=== PATIENT | female | born 1945 | race Caucasian/White ===

== ENCOUNTER 2016-12-11 11:46 | Day surgery (SDC) | payer MEDICARE ==
[2016-12-11] MEDS ORDERED: LACTATED RINGERS 1,000 ML IV ONE (13:16)
[2016-12-11] MEDS ORDERED: MIDAZOLAM 2 MG/2 ML VIAL IVP ONE (14:07)
[2016-12-11] MEDS ORDERED: fentaNYL 250 MCG/5 ML VIAL IVP ONE (14:07)
== END 2016-12-11 11:47 | disposition home or self-care (01) ==
PROC: 0DBN8ZX Excision of Sigmoid Colon, Via Natural or Artificial Opening Endoscopic, Diagnostic (ICD-10-PCS; principal; 2016-12-11 12:45)
DX: D12.5 Benign neoplasm of sigmoid colon (principal); K64.8 Other hemorrhoids; K57.30 Diverticulosis of large intestine without perforation or abscess without bleeding; Z86.010 Personal history of colon polyps; Z87.891 Personal history of nicotine dependence; I10 Essential (primary) hypertension
CPT/HCPCS: 45385; J3010; J7120

== ENCOUNTER 2017-12-04 12:34 | Outpatient (CLI) | payer MEDICARE ==
--- NOTE | 2017-12-04 17:50 | Ultrasound Report ---
BLADDER ULTRASOUND: 12/04/2017 CLINICAL INDICATION: Pain, umbilical discharge, question urachal remnant. TECHNIQUE: Real-time scanning was performed with petroleum products sales representative static images obtained. FINDINGS: Ultrasound of the bladder and midline structures was performed. The urinary bladder measures 10.2 x 8.7 x 8.3 cm. The bladder wall appears normal. Prevoid volume is 388 mL. No postvoid residual is seen. Bilateral ureteral jets are visualized. There is a 0.7 cm midline anterior abdominal wall hernia, approximately 8 cm inferior to the umbilicus, containing fat, without evidence of bowel herniation. No urachal remnant is identified. IMPRESSION: NORMAL URINARY BLADDER. NO EVIDENCE OF A URACHAL REMNANT. TINY MIDLINE HERNIA, CONTAINING FAT, WITHOUT EVIDENCE OF BOWEL HERNIATION. TD: 12/04/2017 17:48
--- NOTE | 2017-12-04 17:52 | Ultrasound Report ---
PELVIC ULTRASOUND: 12/04/2017 CLINICAL INDICATION: Pain, discharge from belly button. TECHNIQUE: Transabdominal pelvic ultrasound performed for global evaluation. Transvaginal pelvic ultrasound performed for detailed evaluation. Real-time scanning performed and static images obtained. FINDINGS: The patient is status post hysterectomy. Neither ovary was confidently identified on transabdominal or transvaginal imaging. No adnexal mass or free fluid is present. IMPRESSION: CHANGES OF HYSTERECTOMY. NO EVIDENCE OF ADNEXAL MASS. TD: 12/04/2017 17:51
== END 2017-12-04 12:35 | disposition home or self-care (01) ==
LOC: DI 12:34
PROVIDERS: ATTEND Internal Medicine
DX: R10.31 Right lower quadrant pain (principal); L08.82 Omphalitis not of newborn; R21 Rash and other nonspecific skin eruption; K43.9 Ventral hernia without obstruction or gangrene
CPT/HCPCS: 36415; 76830; 76856; 76857; 81599

== ENCOUNTER 2018-01-03 11:31 | Outpatient (CLI) | payer MEDICARE | END 2018-01-03 11:32 | disposition home or self-care (01) | LOC: DI 11:31 | PROVIDERS: ATTEND Physician Assistant | DX: R01.1 Cardiac murmur, unspecified (principal); I25.10 Atherosclerotic heart disease of native coronary artery without angina pectoris; I51.7 Cardiomegaly | CPT/HCPCS: 93306 ==

== ENCOUNTER 2018-02-14 10:02 | Outpatient (CLI) | payer MEDICARE | END 2018-02-14 10:03 | disposition home or self-care (01) | LOC: RT 10:02 | PROVIDERS: ATTEND Internal Medicine Cardiovascular Disease | DX: R01.1 Cardiac murmur, unspecified (principal) | CPT/HCPCS: 93005 ==

== ENCOUNTER 2018-06-26 06:53 | Outpatient (CLI) | payer MEDICARE ==
[2018-06-26 07:20] LABS: BASOPHILS # (AUTO) 0.1 10^3/uL (0.0-0.1); BASOPHILS % (AUTO) 0.8 %; EOSINOPHILS # (AUTO) 0.3 10^3/uL (0.0-0.7); EOSINOPHILS % (AUTO) 4.4 %; HGB - HEMOGLOBIN 12.9 g/dL (12.0-16.0); LYMPHOCYTES # (AUTO) 1.3 10^3/uL (1.5-3.5); LYMPHOCYTES % (AUTO) 18.5 %; MEAN CORPUSCULAR HEMOGLOBIN 33.8 pg (27.0-31.0); MEAN CORPUSCULAR HGB CONC 33.5 g/dL (32.0-36.0); MEAN CORPUSCULAR VOLUME 100.8 fL (81.0-99.0); MEAN PLATELET VOLUME 6.3 fL (7.9-10.8); MONOCYTES # (AUTO) 0.7 10^3/uL (0.0-1.0); NEUTROPHILS # (AUTO) 4.9 10^3/uL (1.5-6.6); NEUTROPHILS % (AUTO) 67.3 %; PLT - PLATELET COUNT 329 10^3/uL (130-450); RED BLOOD COUNT 3.83 10^6/uL (4.20-5.40); RED CELL DISTRIBUTION WIDTH 14.8 % (12.0-15.0); WHITE BLOOD COUNT 7.2 x10^3/uL (4.8-10.8)
[2018-06-26 07:34] LABS: ALBUMIN/GLOBULIN RATIO 1.6 (1.0-2.2); ALKALINE PHOSPHATASE 67 IU/L (42-121); ALT ALANINE AMINOTRANSFERASE 30 IU/L (10-60); AST ASPARTATE AMINOTRANSFERASE 31 IU/L (10-42); BILIRUBIN,TOTAL 0.6 mg/dL (0.2-1.0); BUN - BLOOD UREA NITROGEN 21 mg/dL (6-20); CALCIUM 9.3 mg/dL (8.5-10.3); CARBON DIOXIDE - CO2 28 mmol/L (21-32); CHLORIDE 101 mmol/L (101-111); GFR - MDRD 54 (>89); GLUCOSE 104 mg/dL (70-100); SODIUM 138 mmol/L (135-145); TOTAL PROTEIN 6.5 g/dL (6.7-8.2)
[2018-06-26 07:42] LABS: CRP - C-REACTIVE PROTEIN < 1.0 mg/dL (0-1.0)
[2018-06-26 07:46] LABS: THYROID STIMULATING HORMONE 1.09 uIU/mL (0.34-5.60)
[2018-06-26 07:48] LABS: FREE T4 (FREE THYROXINE) 0.64 ng/dL (0.58-1.64)
== END 2018-06-26 06:54 | disposition home or self-care (01) ==
LOC: LAB 06:53
PROVIDERS: ATTEND Physician Assistant
DX: R53.83 Other fatigue (principal); R60.0 Localized edema; R63.4 Abnormal weight loss
CPT/HCPCS: 36415; 80053; 82533; 84439; 84443; 85025; 85651; 86140

== ENCOUNTER 2018-07-02 10:03 | Day surgery (SDC) | payer MEDICARE ==
[~2018-07-02 10:03] MED LIST: ceFAZolin 2 GM/50 ML 2 GM/50 ML BAG IV ONE
[2018-07-02] MEDS ORDERED: ACETAMINOPHEN 1,000 MG/100 ML 100 ML IV ONE (10:39)
[2018-07-02] MEDS ORDERED: KETOROLAC 30 MG/ML VIAL IVP ONE (10:39)
[2018-07-02] MEDS ORDERED: PROPOFOL 200 MG/20 ML VIAL IVP ONE (10:39)
[2018-07-02] MEDS ORDERED: LIDOCAINE-MPF 2% 5 ML VIAL IM ONE (10:39)
[2018-07-02] MEDS ORDERED: fentaNYL 100 MCG/2 ML VIAL IVP ONE (10:39)
[2018-07-02] MEDS ORDERED: ONDANSETRON 4 MG/2 ML VIAL IVP ONE (10:39)
--- NOTE | 2018-07-02 10:39 | ANESTHESIA ---
Pre-Anesthesia VS, & Labs - Diagnosis right inguinal hernia, groin mass - Procedure right inguinal hernia repair Vital Signs: Temp Pulse Resp BP Pulse Ox 36.4 C L 78 16 144/87 H 98 07/02/18 10:19 07/02/18 10:19 07/02/18 10:19 07/02/18 10:19 07/02/18 10:19 Height 5 ft 1 in Weight (kg) 63 kg - NPO >8 hours - Is Patient ?: Not Applicable - Lab Results Lab results reviewed: Yes Home Medications and Allergies Home Medications: Ambulatory Orders Medication Instructions Recorded Confirmed Estradiol 1 mg PO DAILY 10/28/15 07/01/18 Lisinopril 10 mg PO DAILY 10/28/15 07/01/18 Cholecalciferol (Vitamin D3) 400 unit PO DAILY 12/08/16 07/01/18 [Vitamin D3] Doxycycline Hyclate 100 mg PO BID 07/01/18 07/01/18 Folic Acid 1.2 mg PO DAILY 07/01/18 07/01/18 Methotrexate Sodium [Trexall] 15 mg PO .QWEEK 07/01/18 07/01/18 Nad, Reduced, Disodium 0.5 gm PO TID 07/01/18 07/01/18 [Nicotinamide Adenine] Estradiol 1 mg PO DAILY 10/28/15 Lisinopril 10 mg PO DAILY 10/28/15 Cholecalciferol (Vitamin D3) [Vitamin D3] 400 unit PO DAILY 12/08/16 Doxycycline Hyclate 100 mg PO BID 07/01/18 Folic Acid 1.2 mg PO DAILY 07/01/18 Methotrexate Sodium [Trexall] 15 mg PO .QWEEK 07/01/18 Nad, Reduced, Disodium [Nicotinamide Adenine] 0.5 gm PO TID 07/01/18 Allergies/Adverse Reactions: Allergies Allergy/AdvReac Type Severity Reaction Status Date / Time alendronate sodium Allergy Severe Dizziness Verified 07/01/18 10:48 [From Fosamax] bacitracin Allergy Severe Edema Verified 07/01/18 10:48 [From Neosporin ([id number])] aloe Allergy Unknown Verified 07/01/18 10:48 bacitracin zinc * Allergy Edema Verified 07/01/18 10:48 [From Triple Antibiotic] neomycin Allergy Edema Verified 07/01/18 10:48 [From Neosporin ([id number]-dfo-[id number])] permethrin Allergy Unknown Verified 07/02/18 10:28 polymyxin B Allergy Edema Verified 07/01/18 10:48 [From Neosporin ([id number])] Anes History & Medical History - Anesthetic History Anesthesia Complications: reports: No previous complications Family history of Anesthesia Complications: Denies Family history of Malignant Hyperthermia: Denies - Medical History Cardiovascular: reports: Hypertension, High cholesterol, Coronary artery disease (patient denies cad) Pulmonary: reports: Emphysema, Shortness of breath Gastrointestinal: reports: Other Urinary: reports: None Musculoskeletal: reports: None Endocrine/Autoimmune: reports: Other Skin: reports: None - Surgical History General: Colonoscopy Eyes Ears Nose Throat (EENT): Tonsil/Adenoidectomy, Other Cardiothoracic: Lobectomy, AAA Gynecologic: Hysterectomy Exam General: Alert Dental: Dentures full Upper, Dentures full Lower Mouth Openin Fingerbreadth Neck Mobility: Reduced Mallampati classification: II Thyromental Distance: 4-6 cm Respiratory: Lungs clear, Normal breath sounds, No respiratory distress, No ac cessory muscle use Cardiovascular: Regular rate, Normal S1, Normal S2, No murmurs Mental/Cognitive Status: Alert/Oriented X3, Normal for patient Cognitive Status: Within normal limits Plan Anesthesia Type: General Consent for Procedure(s) Verified and Reviewed: Yes Code Status: Attempt Resuscitation ASA classification: 2-Mild systemic disease Is this case an emergency?: No
[2018-07-02] MEDS ORDERED: LACTATED RINGERS 1,000 ML IV ONE ×2 (10:53→14:30)
[2018-07-02] MEDS ORDERED: BUPIVACAINE 0.5% PF 30 ML VIAL INFIL ONE (12:18)
[2018-07-02] MEDS ORDERED: HYDROcod/ACETAM 5/325 MG TABLET PO PRN (13:11)
[2018-07-02] MEDS ORDERED: ONDANSETRON 4 MG/2 ML VIAL IVP PRN (13:11)
[2018-07-02] MEDS ORDERED: HYDROmorphone 0.5 MG/0.5 ML SYRINGE IVP PRN (13:11)
--- NOTE | 2018-07-02 13:11 | OPERATIVE REPORT ---
Operative Report - General Procedure Date: 07/02/18 Planned Procedure: Right inguinal herniorrhaphy Pre-Op Diagnosis: Right inguinal hernia Procedure Performed: Right inguinal herniorrhaphy with mesh Post Op Diagnosis: Right inguinal hernia - Procedure Note Primary Surgeon: Loyd Saab MD Anesthesia Provider: Loyd Gardner MD Anesthesia Technique: General LMA, Local (30 mL of half percent Marcaine) IV Fluids (mL): 700 Estimated Blood Loss (mL): 5 Complications: None. - Other Other Information/Narrative: OPERATIVE DESCRIPTION/REPORT: After verbal and written informed consent was obtained detailing the risks of infection, bleeding requiring transfusion with its risks, nerve injury, and , and after I met with the patient confirming the surgery and the site of the surgery and after initialing the site of the surgery with a surgical marker, the patient was brought to the operative suite and placed supine on the operating table. Great care was taken to avoid pressure points to prevent pressure necrosis or nerve injury. Monitoring devices were applied along with TEDs and pneumatic compressive stockings (to prevent DVT). The patient received preoperative antibiotics for surgical prophylaxis. Dr. Loyd Gardner sedated and anesthetized the patient for the entire procedure. The patient was prepped and draped in the usual sterile manner. With the patient draped my initials were clearly visible. A "time in" then confirmed that the patient was identified with 3 identifiers (name, date and medical record number), the history and physical was in the chart, the signed consent confirming the procedure was in the chart, the patient was in the correct position, the aforementioned prophylactic measures were in place or given, we had the correct personnel and equipment to complete the procedure and that anesthesia, surgery and nursing were given an opportunity to express any concerns. With the agreement of everyone in the room, we proceeded with the operation. A standard inguinal incision was made and dissection was carried down to the external oblique aponeurosis using a combination of Metzenbaum scissors and Bovie electrocautery. The external oblique aponeurosis was cleared of overlying adherent tissue, and the external ring was delineated. The external oblique was the incised with a scalpel and this incision was carried out towards the external ring using Metzenbaum scissors. The sac was immediately apparent coming up through the internal ring. Adhesions to the sac and to the canal were taken down using a combination of Metzenbaum scissors as well as Bovie electrocautery. Once the sac was completely freed it was an easy manner to invert the sac back into the abdomen. A large Bard Perfix plug (Ref# [id number], Lot#[id number], use date 2023-02-02) inserted into the internal ring. The plug was secured to the internal ring by a running 2-0 PDS suture. The Bard Perfix enlay patch was then placed on the floor of the inguinal canal and secured in place using interrupted 0 PDS sutures to the conjoined tendon superiorly, pubic tubercle medially, and shelving edge inferiorly. By reinforcing the floor with the enlay patch, the internal ring was covered. The wound was then irrigated using sterile saline, and hemostasis was obtained using Bovie electrocautery. The incision in the external oblique was approximated using a 3-0 Vicryl in a running fashion. The fascia and skin was then injected with the 1/2% marcaine for group home pain control. The skin incision was approximated with 4-0 Monocryl in a subcuticular fashion. The skin was prepped with benzoin and steristrips were applied. At this point a time out was performed that confirmed that all the counts were correct, the procedure that was performed, the blood loss, the IV fluids administered, and the patients condition. A dressing was then applied. Having tolerated the procedure well, the patient was taken to short stay in good and stable condition. Dragon disclaimer: This document was created in part using voice recognition technology. Because of the inherent limitations of the system ([employer]'s [employer] user manual states that the licensee understands that speech recognition is a statistical process and that recognition errors are inherent in the process), occasional same sounding word substitutions and grammatical errors do occur and persist despite proofreading. Please read this document for context.
[2018-07-02] MEDS: HYDROmorphone 1 MG/ML CARPUJECT ONE ×3 (13:14→13:30)
[2018-07-02] MEDS ORDERED: ONDANSETRON 4 MG/2 ML VIAL ONE (14:12)
[2018-07-02] MEDS ORDERED: DEXAMETHASONE 4 MG/ML VIAL ONE (15:30)
[2018-07-02] MEDS ORDERED: SCOPOLAMINE PATCH TOP ONE (15:31)
[2018-07-02 17:16] VITALS: BP 125/66
== END 2018-07-02 10:04 | disposition home or self-care (01) ==
LOC: SDS 10:03
PROVIDERS: ATTEND Surgery
PROC: 0YU50JZ Supplement Right Inguinal Region with Synthetic Substitute, Open Approach (ICD-10-PCS; principal; 2018-07-02 11:15)
DX: K40.90 Unilateral inguinal hernia, without obstruction or gangrene, not specified as recurrent (principal); I10 Essential (primary) hypertension; J43.9 Emphysema, unspecified; Z87.891 Personal history of nicotine dependence; I25.10 Atherosclerotic heart disease of native coronary artery without angina pectoris
CPT/HCPCS: 49505; C1781; J0131; J0690; J1170; J3490; J7120

== ENCOUNTER 2018-07-10 10:28 | Outpatient (CLI) | payer MEDICARE ==
--- NOTE | 2018-07-10 12:22 | XRAY Report ---
Reason: PAIN, DECREASE ROM Procedure Date: 07/10/2018 Accession Number: [id number] / [id number] Procedure: XRS - Hip w/Pelvis 2-3V RT CPT Code: FULL RESULT: EXAM: RIGHT/LEFT HIP AND PELVIS RADIOGRAPHY EXAM DATE: 07/10/2018 10:46 AM. HISTORY: Pain, decreased range of motion. COMPARISONS: XR PELVIS 1 OR 2 VIEWS 01/22/2008 12:40 PM. TECHNIQUE: 1 view of the pelvis and 1 view of the hip. FINDINGS: Bones: No fracture or bone lesion within the limitations of the suboptimal frog-leg view. Joints: Compared to 2007, there has been progressive joint space narrowing of the femoral acetabular joints, right greater than left. Soft Tissues: Normal. No soft tissue swelling. IMPRESSION: Progression of degenerative joint disease. RADIA
== END 2018-07-10 10:29 | disposition home or self-care (01) ==
LOC: DI.S 10:28
PROVIDERS: ATTEND Physician Assistant
DX: M16.0 Bilateral primary osteoarthritis of hip (principal); R29.898 Other symptoms and signs involving the musculoskeletal system

== ENCOUNTER 2019-07-03 10:43 | Outpatient (CLI) | payer MEDICARE ==
--- NOTE | 2019-07-04 16:33 | XRAY Report ---
Reason: PAIN LT SHOULDER JOINT M25.512 Procedure Date: 07/03/2019 Accession Number: [id number] / [id number] Procedure: XRS - Shoulder 3 View LT CPT Code: FULL RESULT: EXAM: LEFT SHOULDER RADIOGRAPHY, 3 VIEWS EXAM DATE: 07/03/2019 10:57 AM. CLINICAL HISTORY: 74-year-old female with left shoulder pain for 3 months. COMPARISON: CHEST W/ 05/05/2015 1:10 PM. TECHNIQUE: AP, lateral and Y views. FINDINGS: Bones: Minor hypertrophic change lateral aspect of the humeral head. No fracture or bone lesion. Joints: The glenohumeral and acromioclavicular joints are normal. Soft tissues: The visualized hemithorax is unremarkable. No soft tissue swelling. IMPRESSION: Minimal hypertrophic change lateral aspect left humeral head. Otherwise normal examination. No degenerative or inflammatory arthritis noted. RADIA
== END 2019-07-03 10:44 | disposition home or self-care (01) ==
LOC: DI.S 10:43
PROVIDERS: ATTEND Physician Assistant
DX: M25.512 Pain in left shoulder (principal)

== ENCOUNTER 2020-03-10 09:05 | Outpatient (CLI) | payer MEDICARE ==
--- NOTE | 2020-03-10 10:08 | XRAY Report ---
Reason: CERVICALGIA Procedure Date: 03/10/2020 Accession Number: [id number] / [id number] Procedure: XR - Cervical Spine 2 View CPT Code: Final Report FULL RESULT: PROCEDURE: Cervical Spine 2 View INDICATIONS: CERVICALGIA TECHNIQUE: 3 view(s) of the cervical spine were acquired. COMPARISON: None. FINDINGS: Bones: No fractures or dislocations to the T1 level. The lateral masses of C1 appear intact on the odontoid view. No suspicious bony lesions. Severe cervical spondylitic change. Trace degenerative anterolisthesis of C6 on C7 and of C5 on C6. Extensive multilevel right facet arthropathy, with lesser multilevel left facet arthropathy Soft tissues: No prevertebral soft tissue swelling. IMPRESSION: Severe cervical spondylitic change. Reviewed by: Pawan Renae MD on 03/10/2020 10:07 AM PDT Approved by: Pawan Renae MD on 03/10/2020 10:07 AM PDT Station ID: [id number]
== END 2020-03-10 09:06 | disposition home or self-care (01) ==
LOC: DI 09:05
PROVIDERS: ATTEND Nurse Practitioner Family
DX: M47.812 Spondylosis without myelopathy or radiculopathy, cervical region (principal)
CPT/HCPCS: 72040

== ENCOUNTER 2020-04-09 12:48 | Outpatient (CLI) | payer MEDICARE ==
--- NOTE | 2020-04-09 15:07 | XRAY Report ---
PROCEDURE: Chest 2 View X-Ray INDICATIONS: PRE OP TECHNIQUE: 2 view(s) of the chest. COMPARISON: None. FINDINGS: Surgical changes and devices: None. Lungs and pleura: No pleural effusions or pneumothorax. Lungs are clear. Mediastinum: Mediastinal contours are normal. Heart size is normal. Bones and chest wall: No suspicious bony abnormalities. Soft tissues appear unremarkable. IMPRESSION: No acute process. Reviewed by: Trini Grimes MD on 04/09/2020 3:06 PM PDT Approved by: Trini Grimes MD on 04/09/2020 3:06 PM PDT Station ID: [id number]
== END 2020-04-09 12:49 | disposition home or self-care (01) ==
LOC: LAB 12:48
PROVIDERS: ATTEND Surgery
DX: Z01.818 Encounter for other preprocedural examination (principal); K43.2 Incisional hernia without obstruction or gangrene; Z11.59 Encounter for screening for other viral diseases
CPT/HCPCS: 71046; 93005; U0004; 81599

== ENCOUNTER 2020-04-12 08:01 | Day surgery (SDC) | payer MEDICARE ==
[2020-04-12] MEDS ORDERED: PROPOFOL 200 MG/20 ML VIAL IVP ONE (08:02)
[2020-04-12] MEDS ORDERED: KETAMINE 500 MG/10 ML VIAL IVP ONE (08:02)
[2020-04-12] MEDS ORDERED: fentaNYL 100 MCG/2 ML VIAL IVP ONE (08:02)
[2020-04-12] MEDS ORDERED: ONDANSETRON 4 MG/2 ML VIAL IVP ONE (08:02)
[2020-04-12] MEDS ORDERED: MIDAZOLAM 2 MG/2 ML VIAL IVP ONE (08:02)
[2020-04-12] MEDS ORDERED: LACTATED RINGERS 1,000 ML IV ONE (08:26)
[2020-04-12] MEDS ORDERED: CEFAZOLIN SODIUM IN 0.9 % NACL 2 GM/100 ML BAG IV ONE (08:47)
--- NOTE | 2020-04-12 09:00 | ANESTHESIA ---
Pre-Anesthesia VS, & Labs - Diagnosis Incisional Hernia - Procedure Incisional Hernia repair Vital Signs: Temp Pulse Resp BP Pulse Ox 36.2 C L 86 16 188/91 H 94 04/12/20 08:08 04/12/20 08:08 04/12/20 08:08 04/12/20 08:08 04/12/20 08:08 Height 5 ft 1 in Weight (kg) 71.7 kg - NPO >8 hours - Is Patient ?: No - Lab Results Lab results reviewed: Yes Home Medications and Allergies Home Medications: Ambulatory Orders Calcium Carbonate 1,000 mg PO DAILY 03/31/20 Cholecalciferol (Vitamin D3) [Vitamin D3] 25 mcg PO DAILY 03/31/20 Ketorolac [Toradol] 10 mg PO DAILY PRN 03/31/20 estradioL [Estradiol] 1 mg PO DAILY 10/28/15 lisinopriL [Lisinopril] 10 mg PO DAILY 10/28/15 Calcium Carbonate 1,000 mg PO DAILY 03/31/20 Cholecalciferol (Vitamin D3) [Vitamin D3] 25 mcg PO DAILY 03/31/20 Ketorolac [Toradol] 10 mg PO DAILY PRN 03/31/20 Allergies/Adverse Reactions: Allergies Allergy/AdvReac Type Severity Reaction Status Date / Time alendronate sodium Allergy Severe Dizziness Verified 07/01/18 10:48 [From Fosamax] bacitracin Allergy Severe Edema Verified 07/01/18 10:48 [From Neosporin (siv-vja-wllwe)] aloe Allergy Rash Verified 03/31/20 12:41 bacitracin zinc * Allergy Edema Verified 07/01/18 10:48 [From Triple Antibiotic] neomycin Allergy Edema Verified 07/01/18 10:48 [From Neosporin ([id number]-afidm)] permethrin Allergy Unknown Verified 07/02/18 10:28 polymyxin B Allergy Edema Verified 07/01/18 10:48 [From Neosporin (gty-bvl-eltyz)] Anes History & Medical History - Anesthetic History Anesthesia Complications: reports: Difficult airway Family history of Anesthesia Complications: Denies Family history of Malignant Hyperthermia: Denies - Medical History Cardiovascular: reports: Hypertension, High cholesterol, Coronary artery disease, Other Pulmonary: reports: COPD, Emphysema, Shortness of breath Gastrointestinal: reports: None Urinary: reports: Incontinence Neuro: reports: None Musculoskeletal: reports: Osteoarthritis, Fatigue, Other Endocrine/Autoimmune: reports: None Blood Disorders: reports: None Skin: reports: None, Other Smoking Status: Former smoker Psychosocial: reports: Depression - Surgical History General: Colonoscopy Eyes Ears Nose Throat (EENT): Cataracts, Tonsil/Adenoidectomy, Other Cardiothoracic: Lobectomy, AAA Gynecologic: Hysterectomy Results - EKG Results EKG Comparison: Reviewed EKG Exam General: Alert, Oriented x3, Cooperative Dental: WNL Mouth Openin Fingerbreadth Neck Mobility: Limited Mallampati classification: II Thyromental Distance: less than 4 cm Respiratory: Lungs clear Cardiovascular: Regular rate Abdomen: Normal bowel sounds Mental/Cognitive Status: Alert/Oriented X3, Normal for patient Cognitive Status: Within normal limits Plan Anesthesia Type: General, Total IV Consent for Procedure(s) Verified and Reviewed: Yes Code Status: Attempt Resuscitation ASA classification: 3-Severe systemic disease Is this case an emergency?: No
[2020-04-12] MEDS ORDERED: LIDOCAINE 1%-EPI 1:100000 20 ML MDV ONE (10:24)
[2020-04-12] MEDS ORDERED: BUPIVACAINE 0.5% PF 30 ML VIAL ONE (10:24)
[2020-04-12] MEDS ORDERED: SODIUM CHLORIDE 0.9% 10 ML ONE (10:25)
[2020-04-12] MEDS ORDERED: BUPIVACAINE 0.5%-EPI 1:200000 PF 30 ML VIAL SUBQ ONE (10:25)
[2020-04-12] MEDS ORDERED: ceFAZolin 1 GM VIAL IR ONE (10:25)
[2020-04-12] MEDS ORDERED: ceFAZolin 1 GM VIAL ONE (10:25)
[2020-04-12] MEDS ORDERED: LIDOCAINE 1% 10 ML MDV SUBQ ONE (10:25)
--- NOTE | 2020-04-12 11:23 | OPERATIVE REPORT ---
Operative Report - General Procedure Date: 04/12/20 Planned Procedure: Incisional hernia repair Pre-Op Diagnosis: Suprapubic incisional hernia Procedure Performed: Incisional hernia repair with mesh Post Op Diagnosis: Suprapubic incisional hernia - Procedure Note Primary Surgeon: Cristina Anesthesia Provider: BART Tellez Anesthesia Technique: General LMA, Local Estimated Blood Loss (mL): 5 Indications: Painful, incarcerated, incisional hernia Findings: 3.5 cm defect with an incarcerated knuckle of omentum Complications: None apparent - Other Other Information/Narrative: After obtaining informed consent, the patient is brought to the operating room and placed in the supine position on the operating table. Following successful induction of general anesthesia, appropriate padding of all bony prominences, and placement of appropriate monitors, the abdomen was prepped and draped in the standard surgical fashion. A timeout was held per scope protocol. All elements of the surgical safety checklist were followed before, during, and after the procedure. We began the procedure by infiltrating a mixture of local anesthetics in the midline incision and over the region of the palpable hernia. An incision was created here and carried down through the skin and subcutaneous tissue to reveal the fascia below. The hernia sac was easily identified. The sac itself was approximately 6 to 7 cm in greatest diameter. It tapered down to a small opening approximately 3-1/2 cm in diameter. The sac contained what appeared to be viable but bruised omentum. The defect was enlarged approximately a half a centimeter so that the contents of the hernia sac could be returned to the abdominal cavity. Once this had been completed. I elected to repair the defect using permanent Prolene sutures and an onlay patch of Prolene mesh. The defect was then closed in a vertical fashion with interrupted #1 Prolene sutures. Mesh was soaked in Ancef solution and then placed on top of the closed defect and sewn both to the midline incision and the surrounding fascia again with #1 Prolene. The wound was checked for hemostasis and irrigated with warm water containing Ancef solution. It was then closed in 2 layers with Vicryl and Monocryl sutures and Dermabond was applied to the skin. All sponge, needle, and instrument counts were correct at the conclusion of the case. The patient was allowed awaken anesthesia without difficulty and taken to the postanesthesia care unit in good condition.
[2020-04-12] MEDS ORDERED: IBUPROFEN 600 MG TABLET PO PRN (11:26)
[2020-04-12] MEDS ORDERED: ACETAMINOPHEN 325 MG TABLET PO PRN (11:26)
[2020-04-12] MEDS ORDERED: oxyCODONE 5 MG TABLET PO PRN (11:26)
[2020-04-12] MEDS ORDERED: ONDANSETRON 4 MG/2 ML VIAL IVP PRN (11:26)
[2020-04-12] MEDS ORDERED: oxyCODONE 5 MG TABLET ONE (12:24)
[2020-04-12] MEDS ORDERED: KETOROLAC 15 MG/ML VIAL ONE (13:09)
[2020-04-12 13:19] VITALS: BP 136/70
[2020-04-12] MEDS ORDERED: KETOROLAC 15 MG/ML VIAL IVP SCH (14:00)
== END 2020-04-12 08:02 | disposition home or self-care (01) ==
LOC: SDS 08:01
PROVIDERS: ATTEND Surgery
PROC: 0WUF0JZ Supplement Abdominal Wall with Synthetic Substitute, Open Approach (ICD-10-PCS; principal; 2020-04-12 09:00)
DX: K43.0 Incisional hernia with obstruction, without gangrene (principal); I10 Essential (primary) hypertension; J43.9 Emphysema, unspecified; Z87.891 Personal history of nicotine dependence
CPT/HCPCS: 49561; 49568; A9270; C1781; J0690; J7120

== ENCOUNTER 2021-08-19 10:40 | Outpatient (CLI) | payer MEDICARE ==
--- NOTE | 2021-08-19 13:49 | XRAY Report ---
PROCEDURE: Chest 2 View X-Ray INDICATIONS: R06.09 DYSPNEA TECHNIQUE: 2 view(s) of the chest. COMPARISON: Plain films dated 04/09/2020 FINDINGS: Surgical changes and devices: None. Lungs and pleura: No pleural effusions or pneumothorax. Lungs are clear. Mediastinum: Mediastinal contours are normal. Heart size is normal. Bones and chest wall: No suspicious bony abnormalities. Soft tissues appear unremarkable. IMPRESSION: No acute process. Reviewed by: Trini Grimes MD on 08/19/2021 1:48 PM PST Approved by: Trini Grimes MD on 08/19/2021 1:48 PM PST Station ID: [id number]
[2021-08-19 15:23] LABS: BASOPHILS # (AUTO) 0.1 10^3/uL (0.0-0.1); BASOPHILS % (AUTO) 0.9 %; EOSINOPHILS # (AUTO) 0.2 10^3/uL (0.0-0.7); EOSINOPHILS % (AUTO) 2.7 %; HCT - HEMATOCRIT 48.7 % (37.0-47.0); HGB - HEMOGLOBIN 14.8 g/dL (12.0-16.0); LYMPHOCYTES # (AUTO) 1.4 10^3/uL (1.5-3.5); LYMPHOCYTES % (AUTO) 17.5 %; MEAN CORPUSCULAR HEMOGLOBIN 29.8 pg (27.0-31.0); MEAN CORPUSCULAR HGB CONC 30.4 g/dL (32.0-36.0); MEAN CORPUSCULAR VOLUME 98.2 fL (81.0-99.0); MEAN PLATELET VOLUME 9.9 fL (7.9-10.8); MONOCYTES # (AUTO) 0.9 10^3/uL (0.0-1.0); MONOCYTES % (AUTO) 11.5 %; NEUTROPHILS # (AUTO) 5.5 10^3/uL (1.5-6.6); NEUTROPHILS % (AUTO) 67.2 %; PLT - PLATELET COUNT 325 10^3/uL (130-450); RED BLOOD COUNT 4.96 10^6/uL (4.20-5.40); RED CELL DISTRIBUTION WIDTH 14.6 % (12.0-15.0); WHITE BLOOD COUNT 8.2 x10^3/uL (4.8-10.8)
[2021-08-19 15:49] LABS: ALBUMIN 4.1 g/dL (3.2-5.5); ALBUMIN/GLOBULIN RATIO 1.5 (1.0-2.2); BILIRUBIN,TOTAL 0.7 mg/dL (0.2-1.0); CALCIUM 9.6 mg/dL (8.5-10.3); CREATININE 0.7 mg/dL (0.4-1.0); POTASSIUM 4.1 mmol/L (3.5-5.0); TOTAL PROTEIN 6.9 g/dL (6.7-8.2)
[2021-08-19 15:57] LABS: THYROID STIMULATING HORMONE 0.58 uIU/mL (0.34-5.60)
== END 2021-08-19 10:41 | disposition home or self-care (01) ==
LOC: DI.S 10:40
PROVIDERS: ATTEND Nurse Practitioner Family
DX: R06.09 Other forms of dyspnea (principal)
CPT/HCPCS: 36415; 80053; 84443; 85025

== ENCOUNTER 2021-09-11 09:27 | Outpatient (CLI) | payer MEDICARE ==
[2021-09-11] MEDS ORDERED: ALBUTEROL 1 PUFF INH STA (11:39)
== END 2021-09-11 09:28 | disposition home or self-care (01) ==
LOC: RT 09:27
PROVIDERS: ATTEND Nurse Practitioner Family
DX: R06.09 Other forms of dyspnea (principal)
CPT/HCPCS: 94060

== ENCOUNTER 2022-01-27 10:35 | Outpatient (CLI) | payer MEDICARE ==
[2022-01-27] MEDS ORDERED: IOVERSOL 320 50 ML VIAL ONE (11:02)
--- NOTE | 2022-01-27 14:11 | CT Report ---
PROCEDURE: SOFT TISSUE NECK W INDICATIONS: BENIGN NEOPLASM OF BASE OF TONGUE CONTRAST: IV CONTRAST: Optiray 320 ml: 100 PO CONTRAST: *NO PO CONTRAST TECHNIQUE: After the administration of intravenous contrast, 3.0 mm axial sections acquired from the sella to th e aortic arch. Additional oblique axial 3.0 mm sections acquired through the pharynx. 3 mm thick co iker reformats were generated. For radiation dose reduction, the following was used: automated exp osure control, adjustment of mA and/or kV according to patient size. COMPARISON: None. FINDINGS: Image quality: Excellent. Lymph nodes: No enlarged lymph nodes seen throughout the neck. Vessels: Visualized vasculature appears patent. Right common carotid artery follows a medial course. Neck spaces: Slight prominence of the left tongue base mucosa without abnormal postcontrast enhancem ent. The nasopharynx, and pharynx demonstrate no mucosal lesions. The vocal cords, false vocal cords , pyriform sinuses, epiglottis, vallecula, and tongue base all appear normal. Moderate-sized, simple right internal laryngocele that measures up to 1.7 cm. Small, simple left internal laryngocele that m easures up to 5 mm. Extramucosal spaces appear unremarkable. Glands: The parotid and submandibular glands appear normal. The thyroid is normal in size and there are no incidental findings. Miscellaneous: Visualized brain and orbits appear normal. Lung apices appear clear. Bilateral lung centrilobular emphysematous changes. Superficial soft tissues appear normal. Bones: Patient is edentulous. No suspicious bony lesions. Spine degenerative disc disease and facet arthropathy are noted. Visualized sinuses and mastoids appear unremarkable. IMPRESSION: 1. Bilateral simple, internal laryngoceles. 2. Slight prominence of the left tongue base which also without abnormal postcontrast enhancement. 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 Recommend correlation with direct visualizatio n. 3. No lymphadenopathy based on size criteria. Reviewed by: Vanessa Penaloza MD, PhD on 01/27/2022 2:10 PM PDT Approved by: Vanessa Penaloza MD, PhD on 01/27/2022 2:10 PM PDT Station ID: [id number]
[2022-01-27] MEDS ORDERED: IOVERSOL 320 50 ML VIAL IVP ONE (14:55)
== END 2022-01-27 10:36 | disposition home or self-care (01) ==
LOC: DI 10:35
DX: D10.1 Benign neoplasm of tongue (principal); Q31.3 Laryngocele

== ENCOUNTER 2022-03-27 15:06 | Outpatient (CLI) | payer MEDICARE ==
--- NOTE | 2022-03-28 13:44 | Mammography Report ---
BILATERAL DIGITAL SCREENING MAMMOGRAM 3D/2D WITH EXAGGERATED CC: 03/27/2022 CLINICAL: Routine screening. Baseline exam. No prior exams were available for comparison. There are scattered fibroglandular elements in both br easts. There is a 0.8 cm oval equal density mass with a microlobulated margin in the left breast at 1 o'cloc k middle depth. Vascular calcification in the right breast. Benign calcifications in the left breast. No other significant masses, calcifications, or other findings are seen in either breast. IMPRESSION: INCOMPLETE: NEEDS ADDITIONAL IMAGING EVALUATION The 0.8 cm oval equal density mass in the left breast resembles a cyst and is indeterminate. Additional views with possible ultrasound are recommended. This exam was interpreted at Station ID: [id number]. NOTE: For mammograms, a report in lay terms will be sent to the patient. Approximately 15% of breast malignancies will not be visualized mammographically. In the management of a palpable breast mass, a negative mammogram must not discourage biopsy of a clinically suspicious lesion. Electronically Signed By: Harvey Barboza M.D. slc/:03/27/2022 16:49:45 ACR BI-RADS Category 0: Incomplete 3340F PARENCHYMAL PATTERN: (A) - The breast(s) demonstrate(s) scattered fibroglandular densities. BI-RADS CATEGORY: (0) - 0 Mammo and [place] [id number] Immediate follow-up LATERALITY: (B)
== END 2022-03-27 15:07 | disposition home or self-care (01) ==
LOC: DI.S 15:06
PROVIDERS: ATTEND Nurse Practitioner Family
DX: Z12.31 Encounter for screening mammogram for malignant neoplasm of breast (principal); R92.8 Other abnormal and inconclusive findings on diagnostic imaging of breast

== ENCOUNTER 2022-04-28 10:34 | Outpatient (CLI) | payer MEDICARE ==
--- NOTE | 2022-05-01 09:04 | Mammography Report ---
UNILATERAL LEFT DIGITAL DIAGNOSTIC MAMMOGRAM 3D/2D: 04/28/2022 CLINICAL: Patient returns today to evaluate a focal asymmetry in the left breast. Comparison is made to exam dated: 03/27/2022 mammogram - [facility]. There are sca ttered fibroglandular elements in left breast. The 0.8 cm oval equal density mass with a microlobulated margin in the left breast at 3 o'clock middl e depth is seen in additional views. No other significant masses or calcifications are seen in the breast. IMPRESSION: INCOMPLETE: NEEDS ADDITIONAL IMAGING EVALUATION The 0.8 cm oval equal density mass in the left breast resembles a cyst and is indeterminate. A target ed ultrasound of the left breast is recommended and will be performed immediately following this exam . Based on the Tyrer Cuzick model (a risk assessment model) the patients lifetime risk is 1.9% and her 10 year risk is 0.0%. According to the ACR, ACS, and NCCN guidelines, an annual breast MRI exam humza g with mammogram is recommended if the patients lifetime risk is 20% or greater. This exam was interpreted at Station ID: [id number]. NOTE: For mammograms, a report in lay terms will be sent to the patient. Approximately 15% of breast malignancies will not be visualized mammographically. In the management of a palpable breast mass, a negative mammogram must not discourage biopsy of a clinically suspicious lesion. Electronically Signed By: Elissa Allan M.D. lk/:04/28/2022 11:39:56 ACR BI-RADS Category 0: Incomplete 3340F PARENCHYMAL PATTERN: (A) - The breast(s) demonstrate(s) scattered fibroglandular densities. BI-RADS CATEGORY: (0) - 0 Ultrasound [id number] Immediate follow-up LATERALITY: (B)
--- NOTE | 2022-05-01 09:04 | Ultrasound Report ---
LIMITED ULTRASOUND OF LEFT BREAST AND AXILLA: 04/28/2022 CLINICAL: Patient returns for additional imaging over a suspected mass in the left breast. Comparison is made to exams dated: 04/28/2022 mammogram and 03/27/2022 mammogram - [facility]. Color flow and real-time ultrasound of the left breast 3 o'clock, and axilla regions were performed on the areas of interest. Bryant scale images of the real-time examination were reviewed. There is a 0.6 cm irregular mass in the left breast at 3 o'clock middle depth. This irregular mass i s hypoechoic. This correlates as an incidental finding. There also is a 0.7 cm x 0.8 cm x 0.4 cm oval mass in the left breast at 3 o'clock middle depth. Thi s oval mass is hypoechoic. This likely correlates with mammography findings. IMPRESSION: SUSPICIOUS OF MALIGNANCY The 0.6 cm irregular mass in the left breast at 3 o'clock middle depth is at a low suspicion for luis gnancy. An ultrasound guided biopsy is recommended. The 0.7 cm x 0.8 cm x 0.4 cm oval mass in the left breast at 3 o'clock middle depth likely represents a fibroadenoma and is probably benign. Follow-up mammogram and ultrasound in 6 months is recommende d. This exam was interpreted at Station ID: [id number]. SUMMARY: This was discussed with the patient by the radiologist Dr. Yoo at the time of the exam. Electronically Signed By: Elissa Allan M.D. lk/:04/28/2022 12:23:07 Ultrasound BI-RADS: 4a Low suspicion for malignancy BI-RADS CATEGORY: (4a) - Low Susp Biopsy follow-up [id number] Immediate follow-up LATERALITY: (B)
== END 2022-04-28 10:35 | disposition home or self-care (01) ==
LOC: DI 10:34
PROVIDERS: ATTEND Nurse Practitioner Family
DX: R92.8 Other abnormal and inconclusive findings on diagnostic imaging of breast (principal)

== ENCOUNTER 2022-05-05 14:22 | Outpatient (CLI) | payer MEDICARE ==
--- NOTE | 2022-05-05 17:21 | Ultrasound Report ---
PROCEDURE: Retroperitoneal Limited INDICATIONS: AAA TECHNIQUE: Real-time scanning was performed of the retroperitoneal organs, with image documentation. COMPARISON: CT abdomen 08/22/2012 FINDINGS: Endovascular aortic repair is present within the midportion. Proximal aorta measures 2.5 x 2.6 cm the proximal, mid and distal measurements of the endovascular repair measured 2.9 x 3.0 cm, 2.3 x 2.4 cm and 2.1 x 1.9 cm respectively. Proximal peak systolic velocity measures 57.7 cm/s with mid proximal systolic velocity of 63.9 cm/s. Biphasic flow is identified. Inflow stenosis measures 6.5 cm/s with p roximal, mid and distal flow measuring 41.1 cm/s, 50 cm/s and 78 cm/s. The right and left limbs in th e common iliac artery demonstrate triphasic flow and are widely patent. IMPRESSION: Endovascular repair without leak. Questionable kinking within the midportion of the graft secondary t o mild measure narrowing. Reviewed by: Jennifer Glass MD on 05/05/2022 5:19 PM PDT Approved by: Jennifer Glass MD on 05/05/2022 5:19 PM PDT Station ID: [id number]
== END 2022-05-05 14:23 | disposition home or self-care (01) ==
LOC: DI 14:22
PROVIDERS: ATTEND Nurse Practitioner Family
DX: I71.4 Abdominal aortic aneurysm, without rupture (principal)

== ENCOUNTER 2022-05-17 10:13 | Outpatient (CLI) | payer MEDICARE ==
[~2022-05-17 10:13] MED LIST changes: +LIDOCAINE 1%-EPI 1:100000 20 ML MDV ONE; -ceFAZolin 2 GM/50 ML 2 GM/50 ML BAG IV ONE; +lidocaine 1% 20 ML MDV ONE
[2022-05-17] MEDS ORDERED: LIDOCAINE 1%-EPI 1:100000 20 ML MDV SUBQ ONE (14:59)
[2022-05-17] MEDS ORDERED: lidocaine 1% 20 ML MDV SUBQ ONE (15:00)
--- NOTE | 2022-05-22 11:26 | Ultrasound Report ---
ULTRASOUND GUIDED BIOPSY LEFT BREAST WITH MARKING DEVICE INSERTED: 05/17/2022 CLINICAL: Left breast mass. PATIENT CONSENT: Risks (minor bleeding, infection, vasovagal reaction and repeat procedure), benefits and alternatives were explained to the patient and written informed consent was obtained. Correlation is made to exams dated: 04/28/2022 ultrasound, 04/28/2022 mammogram, and 03/27/2022 mammogr [facility]. An ultrasound guided biopsy using real-time ultrasound was performed for the 0.6 cm x 0.3 cm x 0.6 cm microlobulated irregular shaped mass located in the left breast at 3 o'clock middle depth 2 cm from the nipple. The skin was prepped in the usual manner. An 18 gauge biopsy needle was placed adjacent to the abnormality under ultrasound guidance. Once the needle was documented to be in the correct l ocation, five specimens were obtained using a BARD biopsy device. A clip was inserted into the biops y cavity. The specimens were sent to the laboratory for pathological analysis. After marker was placed, the patient declined post-procedure mammogram IMPRESSION: ULTRASOUND GUIDED BIOPSY BENIGN Ultrasound guided biopsy of the 0.6 cm x 0.3 cm x 0.6 cm mass in the left breast at 3 o'clock middle depth 2 cm from the nipple demonstrates benign breast tissue. These results are discordant with the imaging. Repeat biopsy with a vacuum assisted device is recommended. This exam was interpreted at Station ID: [id number]. Rui blevins,lk/:05/19/2022 17:34:09 BI-RADS CATEGORY: () - Biopsy follow-up [id number] Immediate follow-up LATERALITY: (B)
== END 2022-05-17 10:14 | disposition home or self-care (01) ==
LOC: DI 10:13
PROVIDERS: ATTEND Nurse Practitioner Family
DX: R92.8 Other abnormal and inconclusive findings on diagnostic imaging of breast (principal)
CPT/HCPCS: 19083

== ENCOUNTER 2022-07-05 11:54 | Day surgery (SDC) | payer MEDICARE ==
[2022-07-05] MEDS ORDERED: LACTATED RINGERS 1,000 ML IV ONE ×2 (12:29→14:40)
[2022-07-05] MEDS ORDERED: PROPOFOL 200 MG/20 ML VIAL IVP ONE (13:07)
[2022-07-05] MEDS ORDERED: PROPOFOL 500 MG/50 ML 500 MG/50 ML VIAL ONE (13:07)
--- NOTE | 2022-07-05 13:57 | ANESTHESIA ---
Pre-Anesthesia VS, & Labs - Diagnosis screening - Procedure colonoscopy Vital Signs: Temp Pulse Resp BP Pulse Ox O2 Flow Rate 36.6 C 95 22 150/84 H 94 07/05/22 12:15 07/05/22 12:15 07/05/22 12:15 07/05/22 12:15 07/05/22 12:15 Height: 5 ft Weight (kg): 69 kg Body Mass Index: 29.7 BMI Classification: Overweight - NPO >8 hours Last Fluid Intake: am prep - Is Patient ?: No - Lab Results Lab results reviewed: Yes Home Medications and Allergies Home Medications: Ambulatory Orders Albuterol Sulf [Ventolin Hfa Inhaler] 1 each INH Q4HR 07/04/22 Areds 2 1 each PO DAILY 07/04/22 Tiotropium [place] [Spiriva Respimat] 4 gm IH DAILY 07/04/22 estradioL [Estradiol] 1 mg PO DAILY 10/28/15 lisinopriL [Lisinopril] 10 mg PO DAILY 10/28/15 Calcium Carbonate 1,000 mg PO DAILY 03/31/20 Cholecalciferol (Vitamin D3) [Vitamin D3] 25 mcg PO DAILY 03/31/20 Albuterol Sulf [Ventolin Hfa Inhaler] 1 each INH Q4HR 07/04/22 Areds 2 1 each PO DAILY 07/04/22 Tiotropium [place] [Spiriva Respimat] 4 gm IH DAILY 07/04/22 Allergies/Adverse Reactions: Allergies Allergy/AdvReac Type Severity Reaction Status Date / Time alendronate sodium Allergy Severe Dizziness Verified 07/01/18 10:48 [From Fosamax] bacitracin Allergy Severe Edema Verified 07/01/18 10:48 [From Neosporin ([id number])] aloe Allergy Rash Verified 03/31/20 12:41 bacitracin zinc * Allergy Edema Verified 07/01/18 10:48 [From Triple Antibiotic] neomycin Allergy Edema Verified 07/01/18 10:48 [From Neosporin ([id number])] permethrin Allergy Unknown Verified 07/02/18 10:28 polymyxin B Allergy Edema Verified 07/01/18 10:48 [From Neosporin ([id number])] Anes History & Medical History - Anesthetic History Anesthesia Complications: reports: No previous complications Family history of Anesthesia Complications: Denies Family history of Malignant Hyperthermia: Denies - Medical History Cardiovascular: reports: Hypertension, High cholesterol, Coronary artery disease, Other Pulmonary: reports: COPD, Emphysema, Shortness of breath Gastrointestinal: reports: None Urinary: reports: Incontinence Neuro: reports: None Musculoskeletal: reports: Osteoarthritis, Fatigue, Other Endocrine/Autoimmune: reports: None Blood Disorders: reports: None Skin: reports: None, Other Smoking Status: Former smoker History of Cancer?: Yes (lung, resected) - Surgical History General: reports: Colonoscopy Eyes Ears Nose Throat (EENT): reports: Cataracts, Tonsil/Adenoidectomy, Other Cardiothoracic: reports: Lobectomy, AAA Gynecologic: reports: Hysterectomy, Other Exam General: Alert, Oriented x3, Cooperative Dental: Dentures full Upper, Dentures full Lower Mouth Openin Fingerbreadth Neck Mobility: Normal Mallampati classification: II Thyromental Distance: 4-6 cm Respiratory: Lungs clear, Normal breath sounds, No respiratory distress Cardiovascular: Regular rate Mental/Cognitive Status: Alert/Oriented X3, Normal for patient Cognitive Status: Within normal limits Plan Anesthesia Type: Total IV Consent for Procedure(s) Verified and Reviewed: Yes Code Status: Attempt Resuscitation ASA classification: 3-Severe systemic disease Is this case an emergency?: No
[2022-07-05] MEDS ORDERED: LIDOCAINE-MPF 2% 5 ML VIAL ONE (14:19)
[2022-07-05 15:24] VITALS: BP 144/88
--- NOTE | 2022-07-05 15:42 | ANESTHESIA POST OP EVALUATION ---
Anesthesia Post Eval - Post Anesthesia Eval Vitals: Last Vital Signs Temp 36.9 C 07/05/22 14:40 Pulse 66 07/05/22 15:23 Resp 21 07/05/22 15:23 BP 144/88 H 07/05/22 15:23 Pulse Ox 94 07/05/22 15:23 O2 Flow Rate CV Function Including HR & BP: Stable Pain Control: Satisfactory Nausea & Vomiting: Negative Mental Status: Baseline Respiratory Status: Airway Patent Hydration Status: Satisfactory Anesthesia Complications: None
== END 2022-07-05 11:55 | disposition home or self-care (01) ==
LOC: SDS 11:54
PROVIDERS: ATTEND Surgery
DX: Z12.11 Encounter for screening for malignant neoplasm of colon (principal); Z86.010 Personal history of colon polyps; K57.30 Diverticulosis of large intestine without perforation or abscess without bleeding; J44.9 Chronic obstructive pulmonary disease, unspecified; I10 Essential (primary) hypertension
CPT/HCPCS: G0105; J7120

== ENCOUNTER 2022-07-08 08:41 | Outpatient (CLI) | payer MEDICARE ==
--- NOTE | 2022-07-08 16:43 | CT Report ---
PROCEDURE: CT angiogram abdomen and pelvis with contrast INDICATIONS: Abdominal aortic aneurysm, stent 2012 CONTRAST: IV CONTRAST: Optiray 320 ml: 100 PO CONTRAST: *NO PO CONTRAST TECHNIQUE: After the administration of intravenous contrast, 2.5 mm thick sections acquired from the diaphragm t o the symphysis. 10 mm maximum-intensity projection (MIP) reformats were then acquired. For radiati on dose reduction, the following was used: automated exposure control, adjustment of mA and/or kV ac cording to patient size. COMPARISON: FINDINGS: Lower thorax: The lung bases are clear. Heart size normal. No hiatal hernia. Liver: Normal in size and attenuation. No contour deformity present. 3 cm right hepatic cyst. Smalle r additional cysts noted. Biliary system: No calcified cholelithiasis or pericholecystic inflammation. No evidence of bile du ct dilatation. Pancreas: Unremarkable without mass or inflammation evident. Spleen: Normal in size and density. 1.7 cm low-density lesion in the inferior pole the spleen Adrenals: Low-density 1.7 cm left adrenal nodule Reproductive system: Unremarkable as visualized. Urinary system: Normal renal size and attenuation. No renal calculi, hydronephrosis, or solid mass p resent. Urinary bladder unremarkable. Gastrointestinal system: The bowel appears unremarkable with no evidence of bowel obstruction or inf lammation. The stomach appears unremarkable. Left colon and sigmoid diverticulosis without evidence o f diverticulitis Appendix: No findings to suggest acute appendicitis. Peritoneal spaces: No mesenteric or retroperitoneal adenopathy. No free air. No free fluid. Vasculature: Infrarenal abdominal aortic aneurysm measures 3 cm. Abdominal aorta is tortuous and ecta tic, and shows mural fatty scarring vascular calcification. No aortic dissection Musculoskeletal: Normal bone mineralization. No acute fractures. Abdominal wall intact without pooja dence of ventral or inguinal hernias. Degenerative disc disease and arthropathy noted in the lower wiley mbar spine IMPRESSION: Small infrarenal abdominal aortic aneurysm measures 3 cm in diameter, and may reflect surgical graft. No dissection. Low-density 1.7 cm left adrenal nodule, probable adenoma. Right hepatic and splenic probable cysts Reviewed by: Yung Merida MD on 07/08/2022 3:42 PM AKGARTH Approved by: Yung Merida MD on 07/08/2022 3:42 PM AKDT Station ID: [id number]
== END 2022-07-08 08:42 | disposition home or self-care (01) ==
LOC: DI 08:41
PROVIDERS: ATTEND Nurse Practitioner Family
DX: I71.40 Abdominal aortic aneurysm, without rupture, unspecified (principal); E27.9 Disorder of adrenal gland, unspecified
CPT/HCPCS: 36415; 74174; 80048; Q9967

== ENCOUNTER 2022-07-08 08:42 | Outpatient (CLI) | payer MEDICARE ==
[2022-07-08 09:22] LABS: CALCIUM 9.1 mg/dL (8.5-10.3); CREATININE 0.8 mg/dL (0.4-1.0); POTASSIUM 4.1 mmol/L (3.5-5.0)
== END 2022-07-08 08:43 | disposition home or self-care (01) ==
LOC: LAB 08:42
PROVIDERS: ATTEND Nurse Practitioner Family
DX: I71.40 Abdominal aortic aneurysm, without rupture, unspecified (principal)
CPT/HCPCS: 36415; 80048

== ENCOUNTER 2022-09-07 12:05 | Day surgery (SDC) | payer MEDICARE ==
[2022-09-07] MEDS ORDERED: LACTATED RINGERS 1,000 ML IV ONE ×2 (12:45→15:46)
[2022-09-07] MEDS ORDERED: LIDOCAINE JELLY 2% 6 ML JEL.PF.APP ONE (13:46)
[2022-09-07] MEDS ORDERED: BUPIVACAINE 0.5% PF 30 ML VIAL ONE (13:46)
[2022-09-07] MEDS ORDERED: LIDOCAINE MPF 2%-EPI 1:200000 20 ML VIAL ONE (13:46)
[2022-09-07] MEDS ORDERED: MIDAZOLAM 2 MG/2 ML VIAL ONE (14:09)
[2022-09-07] MEDS ORDERED: fentaNYL 100 MCG/2 ML VIAL ONE (14:09)
[2022-09-07] MEDS ORDERED: ROCURONIUM 50 MG/5 ML VIAL ONE (14:09)
[2022-09-07] MEDS ORDERED: PROPOFOL 200 MG/20 ML VIAL IVP ONE (14:10)
--- NOTE | 2022-09-07 14:49 | ANESTHESIA ---
Pre-Anesthesia VS, & Labs - Diagnosis symptomatic large internal hemorrhoids - Procedure PPH stapled hemorrhoidectomy Vital Signs: Temp Pulse Resp BP Pulse Ox O2 Flow Rate 36.8 C 61 18 165/64 H 96 09/07/22 12:23 09/07/22 12:23 09/07/22 12:23 09/07/22 12:23 09/07/22 12:23 Height: 5 ft Weight (kg): 71.4 kg Body Mass Index: 30.7 BMI Classification: Obese - NPO >8 hours - Is Patient ?: No - Lab Results Lab results reviewed: Yes Home Medications and Allergies estradioL [Estradiol] 1 mg PO DAILY 10/28/15 lisinopriL [Lisinopril] 10 mg PO DAILY 10/28/15 Calcium Carbonate 1,000 mg PO DAILY 03/31/20 Cholecalciferol (Vitamin D3) [Vitamin D3] 25 mcg PO DAILY 03/31/20 Albuterol Sulf [Ventolin Hfa Inhaler] 1 each INH Q4HR 07/04/22 Areds 2 1 each PO DAILY 07/04/22 Tiotropium [place] [Spiriva Respimat] 4 gm IH DAILY 07/04/22 Allergies/Adverse Reactions: Allergies Allergy/AdvReac Type Severity Reaction Status Date / Time alendronate sodium Allergy Severe Dizziness Verified 07/01/18 10:48 [From Fosamax] bacitracin Allergy Severe Edema Verified 07/01/18 10:48 [From Neosporin ([id number])] aloe Allergy Rash Verified 03/31/20 12:41 bacitracin zinc * Allergy Edema Verified 07/01/18 10:48 [From Triple Antibiotic] neomycin Allergy Edema Verified 07/01/18 10:48 [From Neosporin ([id number])] permethrin Allergy Unknown Verified 07/02/18 10:28 polymyxin B Allergy Edema Verified 07/01/18 10:48 [From Neosporin ([id number])] Anes History & Medical History - Anesthetic History Anesthesia Complications: reports: No previous complications Family history of Anesthesia Complications: Denies Family history of Malignant Hyperthermia: Denies - Medical History Cardiovascular: reports: Hypertension, High cholesterol, Coronary artery disease, Other Pulmonary: reports: COPD, Emphysema, Shortness of breath Gastrointestinal: reports: None Urinary: reports: Incontinence Neuro: reports: None Musculoskeletal: reports: Osteoarthritis, Fatigue, Other Endocrine/Autoimmune: reports: None Blood Disorders: reports: None Skin: reports: None, Other Smoking Status: Former smoker - Surgical History General: reports: Colonoscopy Eyes Ears Nose Throat (EENT): reports: Cataracts, Tonsil/Adenoidectomy, Other Cardiothoracic: reports: Lobectomy, AAA Gynecologic: reports: Hysterectomy, Other Exam General: Alert, Oriented x3 Dental: Dentures full Upper, Dentures full Lower Mouth Openin Fingerbreadth Neck Mobility: Normal Mallampati classification: II Thyromental Distance: 4-6 cm Respiratory: Lungs clear, Normal breath sounds, No accessory muscle use Cardiovascular: Regular rate Neurological: Normal speech Mental/Cognitive Status: Alert/Oriented X3, Normal for patient Cognitive Status: Within normal limits Plan Anesthesia Type: General Consent for Procedure(s) Verified and Reviewed: Yes Code Status: Attempt Resuscitation ASA classification: 3-Severe systemic disease Is this case an emergency?: No
[2022-09-07] MEDS ORDERED: ONDANSETRON 4 MG/2 ML VIAL IVP PRN ×2 (14:51→16:14)
[2022-09-07] MEDS ORDERED: MORPHINE 2 MG/ML CARPUJECT IVP PRN (14:51)
[2022-09-07] MEDS ORDERED: ATROPINE ABBOJECT 1 MG/10 ML SYRINGE IVP PRN (14:51)
[2022-09-07] MEDS ORDERED: METOCLOPRAMIDE 10 MG/2 ML VIAL IVP PRN (14:51)
[2022-09-07] MEDS ORDERED: HYDROmorphone 0.5 MG/0.5 ML SYRINGE IVP PRN ×2 (14:51→16:14)
[2022-09-07] MEDS ORDERED: NALOXONE 0.4 MG/ML VIAL IVP PRN (14:51)
[2022-09-07] MEDS ORDERED: ePHEDrine 50 MG/ML VIAL IVP PRN (14:51)
[2022-09-07] MEDS ORDERED: fentaNYL 100 MCG/2 ML VIAL IVP PRN (14:51)
[2022-09-07] MEDS ORDERED: LACTATED RINGERS 1,000 ML IV SCH (15:00)
[2022-09-07] MEDS ORDERED: BUPIVACAINE 0.5% PF 30 ML VIAL INFIL ONE ×2 (15:07)
[2022-09-07] MEDS ORDERED: LIDOCAINE 1%-EPI 1:100000 20 ML MDV SUBQ ONE ×2 (15:07)
[2022-09-07] MEDS ORDERED: ONDANSETRON 4 MG/2 ML VIAL ONE (15:29)
[2022-09-07] MEDS ORDERED: DEXAMETHASONE 4 MG/ML VIAL ONE (15:29)
[2022-09-07] MEDS ORDERED: LIDOCAINE JELLY 2% 6 ML JEL.PF.APP TOP ONE (15:29)
[2022-09-07] MEDS ORDERED: SUGAMMADEX 200 MG/2 ML VIAL IVP ONE (15:35)
--- NOTE | 2022-09-07 16:02 | OPERATIVE REPORT ---
Operative Report - General Procedure Date: 09/07/22 Planned Procedure: Stapled hemorrhoidectomy Pre-Op Diagnosis: Symptomatic internal hemorrhoids Procedure Performed: Stapled hemorrhoidectomy (PPH) Post Op Diagnosis: Same - Procedure Note Primary Surgeon: Loyd Saab MD Anesthesia Provider: Harmony Carrion supervised by Gurmeet Garcia CRNA Anesthesia Technique: General ET tube, Local (40 mL of half percent Marcaine mixed with 2% lidocaine with epinephrine) IV Fluids (mL): 500 Estimated Blood Loss (mL): 5 Drain/Tube Type: Other (None.) Indications: As above. Findings: Very large internal hemorrhoids. Complications: None. - Other Other Information/Narrative: After verbal and written informed consent was obtained detailing the operation, the alternatives the operation including no operation, risks of infection, bleeding requiring transfusion with its risks, nerve injury, and and after I met with the patient confirming the surgery and the site of surgery, the patient was brought to the operative suite and placed supine on the operating table. Great care was taken to avoid pressure points to prevent pressure necr osis or nerve injury. Monitoring devices were applied. [The parachute manufacturing supervisor] sedated and anesthetized the patient for the entire procedure. The patient was then placed in prone jackknife position and prepped and draped in the usual sterile manner. Again, great care was taken to avoid pressure points to prevent pressure necrosis or nerve injury. A "time in" then confirmed that the patient was identified with 3 identifiers (name, date, and medical record number), the history and physical was updated and in the chart, the signed consent confirming the procedure was in the chart, the patient was in the correct position, the aforementioned prophylactic measures were in place or given, we had the correct personnel and equipment to complete the procedure and that anesthesia and the surgical team were given an opportunity to express any concerns. With the agreement of everyone in the room we proceeded with the operation. Digital rectal examination was done progressively from 1 to 3 fingers gently to dilate the area. Once the area was appropriately lubricated, the PPH kit was opened and the dilator, sleeve, and retractor were placed into the patient's anus and the retractor was sewn in place above and below using a 2-0 silk suture. The dilator was then removed and using the markings on the sleeve a circumferential 2-0 Prolene purse-string suture was placed 4 cm up from the anal verge. Upon confirming that this was a circumferential gentle tension on the suture proved that there was a good purse-string with no "skip" areas. The sleeve was removed and the anvil was placed past this purse-string suture and the purse-string was tied tied around the post. The suture was then passed through the orange hole on the anvil and then tied again to ensure that it was secured to the post. The stapler was then attached to the post and screwed down tight until the green line could be seen indicating that there was good tissue approximation. Over 3 minutes were allowed to elapse to allow for evacuation of blood from the tissues. The stapler was then fired and following the firing the stapler was removed. A complete "doughnut" of hemorrhoidal tissue was noted to be present on the post of the anvil. The retractor was similarly removed after cutting the sutures and at this point a bivalve retractor was used to look at the staple line circumferentially. Meticulous hemostasis was noted to be present and no hemostatic sutures were required. Mildly concerning was the excoriation of the skin perianally. The perianal area was injected circumferentially using the aforementioned local anesthesia for long-term pain control. A Gelfoam roll was come constructed using Gelfoam and lidocaine jelly and inserted into the patient's anus for long-term pain control as well as to absorb any blood that may be present. An ABD was placed exteriorly. At this point a timeout was performed that confirmed that all counts were correct x2, the procedure that was performed, the blood loss, the IV fluids administered, the patient's condition, and any concerns of the operating team had. Having tolerated the procedure well, the patient was extubated and taken to recovery room in good and stable condition. The plan is for outpatient discharge when the patient is adequately recovered. CPT 04322 This document was created in part using voice recognition technology. Because o f the inherent limitations of the system, occasional same sounding word substitutions and grammatical errors do occur and persist despite proofreading. Please read this document for content.
[2022-09-07] MEDS ORDERED: HYDROcod/ACETAM 5/325 MG TABLET PO PRN (16:14)
[2022-09-07 16:32] VITALS: BP 157/69
--- NOTE | 2022-09-07 16:32 | ANESTHESIA POST OP EVALUATION ---
Anesthesia Post Eval - Post Anesthesia Eval Vitals: Last Vital Signs Temp 36.8 C 09/07/22 16:12 Pulse 86 09/07/22 16:12 Resp 23 09/07/22 16:12 BP 151/88 H 09/07/22 16:12 Pulse Ox 98 09/07/22 16:12 O2 Flow Rate CV Function Including HR & BP: Stable Pain Control: Satisfactory Nausea & Vomiting: Negative Mental Status: Baseline Respiratory Status: Airway Patent Hydration Status: Satisfactory Anesthesia Complications: None
== END 2022-09-07 12:06 | disposition home or self-care (01) ==
LOC: SDS 12:05
PROVIDERS: ATTEND Surgery
PROC: 06BY3ZC Excision of Hemorrhoidal Plexus, Percutaneous Approach (ICD-10-PCS; principal; 2022-09-07 13:15)
DX: K64.8 Other hemorrhoids (principal); J43.9 Emphysema, unspecified; I10 Essential (primary) hypertension; E66.9 Obesity, unspecified; Z68.30 Body mass index [BMI] 30.0-30.9, adult; Z87.891 Personal history of nicotine dependence
CPT/HCPCS: 46947; J7120

== ENCOUNTER 2022-09-09 09:55 | Emergency (ER) | payer MEDICARE ==
[2022-09-09 10:17] VITALS: BP 111/66
--- NOTE | 2022-09-09 10:53 | ED Physician Documentation ---
PD HPI FEMALE - Stated complaint Stated Complaint: FEMALE - Chief complaint Chief Complaint: Abd Pain - History obtained from History obtained from: Patient - History of Present Illness Timing - onset: How many days ago (2) Timing - duration: Days (2) Timing - details: Abrupt onset, Still present, Waxing and waning (has been only able to urinate small amounts since surgery 2 days ago. However feeling more fullness of bladder this morning.) Associated symptoms: Pelvic pain, Other (rectal pain from surgery) Similar symptoms before: Has not had sx before Recently seen: Surgery (2 days ago, clipping of internal hemorrhoids.) Review of Systems Constitutional: denies: Fever, Chills Nose: denies: Rhinorrhea / runny nose, Congestion Throat: denies: Sore throat Respiratory: denies: Cough GI: denies: Nausea, Vomiting : reports: Unable to Void Neurologic: denies: Focal weakness, Numbness PD PAST MEDICAL HISTORY - Past Medical History Cardiovascular: Hypertension, High cholesterol, Coronary artery disease, Other Respiratory: COPD, Emphysema, Shortness of breath Neuro: None Endocrine/Autoimmune: None GI: None : Incontinence HEENT: Chronic vision loss Psych: None Musculoskeletal: Osteoarthritis, Fatigue, Other Derm: None, Other - Past Surgical History General: 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, Other Cardiovascular: Lobectomy, AAA HEENT: Cataracts, Tonsil/Adenoidectomy, Other - Present Medications Home Medications: Ambulatory Orders Medication Instructions Recorded Confirmed estradioL [Estradiol] 1 mg PO DAILY 10/28/15 09/07/22 lisinopriL [Lisinopril] 10 mg PO DAILY 10/28/15 09/07/22 Calcium Carbonate 1,000 mg PO DAILY 03/31/20 09/07/22 Cholecalciferol (Vitamin D3) 25 mcg PO DAILY 03/31/20 09/07/22 [Vitamin D3] Albuterol Sulf [Ventolin Hfa 1 each INH Q4HR 07/04/22 09/07/22 Inhaler] Areds 2 1 each PO DAILY 07/04/22 09/07/22 Tiotropium [place] [Spiriva 4 gm IH DAILY 07/04/22 09/07/22 Respimat] Docusate Sodium 250Mg Capsule 250 mg PO DAILY #10 cap 09/07/22 [Colace 250Mg Capsule] HYDROcod/ACETAM 5/325 [[place] 5/325] 1 each PO Q4H PRN #10 tablet 09/07/22 - Allergies Allergies/Adverse Reactions: Allergies Allergy/AdvReac Type Severity Reaction Status Date / Time alendronate sodium Allergy Severe Dizziness Verified 09/09/22 10:17 [From Fosamax] bacitracin Allergy Severe Edema Verified 09/09/22 10:17 [From Neosporin ([id number])] aloe Allergy Rash Verified 09/09/22 10:17 bacitracin zinc * Allergy Edema Verified 09/09/22 10:17 [From Triple Antibiotic] neomycin Allergy Edema Verified 09/09/22 10:17 [From Neosporin ([id number])] permethrin Allergy Unknown Verified 09/09/22 10:17 polymyxin B Allergy Edema Verified 09/09/22 10:17 [From Neosporin ([id number])] - Social History Smoking Status: Former smoker PD ED PE NORMAL - Vitals Vital signs reviewed: Yes - General General: Alert and oriented X 3, Well developed/nourished, Other (appears uncomfortable with lower abd pain and fullness. ) - Abdomen Abdomen: Normal bowel sounds, Soft, No organomegaly, Other (fullness suprapubic. Rectal area externally without fullness nor swelling. ) - Rectal Rectal: Deferred (external view, no digital exam. ) Results - Vitals Vitals: Vital Signs - 24 hr 09/09/22 10:12 Temperature 36.8 C Heart Rate 101 H Respiratory 18 Rate Blood Pressure 111/66 O2 Saturation 94 Oxygen O2 Source Room air PD MEDICAL DECISION MAKING - ED course Complexity details: reviewed old records, considered differential (acute post operative urinary retnetion. ), d/w patient Departure - Departure Disposition: 01 Home, Self Care Clinical Impression: Postoperative urinary retention Condition: Stable Record reviewed to determine appropriate education?: Yes Instructions: ED Catheter Care Jones Follow-Up: Loyd Saab MD [Provider Admit Priv/Credential] - Comments: Keep the Jones catheter in place to allow continued drainage. Follow-up with your surgeons office this coming week. Typically would leave the Jones in for several days to allow the conditions that promoted it to improve and then see if you are able to urinate well after that. Continue your other usual medications. Discharge Date/Time: 09/09/22 11:36
[2022-09-09] MEDS ORDERED: IBUPROFEN 600 MG TABLET PO STA (11:15)
== END 2022-09-09 11:36 | disposition home or self-care (01) ==
LOC: ED 09:55
DX: N99.89 Other postprocedural complications and disorders of genitourinary system (principal); R33.8 Other retention of urine; Z87.891 Personal history of nicotine dependence
CPT/HCPCS: 51702; 99282; 99283

== ENCOUNTER 2022-09-10 10:41 | Emergency (ER) | payer MEDICARE ==
[2022-09-10] MEDS ORDERED: KETOROLAC 10 MG TABLET PO STA (12:07)
--- NOTE | 2022-09-10 12:10 | ED Physician Documentation ---
PD HPI ABD PAIN - Stated complaint Stated Complaint: FEMALE GI - Chief complaint Chief Complaint: Abd Pain - History obtained from History obtained from: Patient - Additional information Additional information: This is a 69-year-old female who presents with perirectal pain. The patient had a internal hemorrhoid surgery a couple of days ago and was seen here yesterday due to urinary retention. She states she is here today due to significant rectal pain and concern for complication from her surgery. She states she feels like "I have a pineapple up my butt." She has been taking hydrocodone occasionally the last took it 2 AM, no other medication. She was requesting Toradol now for pain relief. She has noted just a small amount of bleeding when she wipes or occasional that he has had small clots of less than a centimeter diameter on a couple of occasions but no heavy bleeding. She has not had a fever or chills, no chest pain or difficulty breathing, no other abdominal pain, no nausea vo miting or diarrhea.She states she notified her surgeon and he was going to see her here in the ER. Review of Systems Ten Systems: 10 systems reviewed and negative (Except as per HPI) PD PAST MEDICAL HISTORY - Past Medical History Cardiovascular: Hypertension, High cholesterol, Coronary artery disease, Other Respiratory: COPD, Emphysema, Shortness of breath Neuro: None Endocrine/Autoimmune: None GI: None : Incontinence HEENT: Chronic vision loss Psych: None Musculoskeletal: Osteoarthritis, Fatigue, Other Derm: None, Other - Past Surgical History General: Colonoscopy /[employer]: Hysterectomy, Other Cardiovascular: Lobectomy, AAA HEENT: Cataracts, Tonsil/Adenoidectomy, Other - Present Medications Home Medications: Ambulatory Orders Medication Instructions Recorded Confirmed estradioL [Estradiol] 1 mg PO DAILY 10/28/15 09/10/22 lisinopriL [Lisinopril] 10 mg PO DAILY 10/28/15 09/10/22 Calcium Carbonate 1,000 mg PO DAILY 03/31/20 09/10/22 Cholecalciferol (Vitamin D3) 25 mcg PO DAILY 03/31/20 09/10/22 [Vitamin D3] Albuterol Sulf [Ventolin Hfa 1 each INH Q4HR 07/04/22 09/10/22 Inhaler] Areds 2 1 each PO DAILY 07/04/22 09/10/22 Tiotropium [place] [Spiriva 4 gm IH DAILY 07/04/22 09/10/22 Respimat] Docusate Sodium 250Mg Capsule 250 mg PO DAILY #10 cap 09/07/22 09/10/22 [Colace 250Mg Capsule] HYDROcod/ACETAM 5/325 [Ravenel 5/325] 1 each PO Q4H PRN #10 tablet 09/07/22 09/10/22 Ketorolac [Toradol] 10 mg PO Q6H PRN #16 tablet 09/10/22 - Allergies Allergies/Adverse Reactions: Allergies Allergy/AdvReac Type Severity Reaction Status Date / Time alendronate sodium Allergy Severe Dizziness Verified 09/10/22 11:19 [From Fosamax] bacitracin Allergy Severe Edema Verified 09/10/22 11:19 [From Neosporin ([id number])] aloe Allergy Rash Verified 09/10/22 11:19 bacitracin zinc * Allergy Edema Verified 09/10/22 11:19 [From Triple Antibiotic] neomycin Allergy Edema Verified 09/10/22 11:19 [From Neosporin ([id number])] permethrin Allergy Unknown Verified 09/10/22 11:19 polymyxin B Allergy Edema Verified 09/10/22 11:19 [From Neosporin ([id number])] - Social History Smoking Status: Former smoker PD ED PE NORMAL - Vitals Vital signs reviewed: Yes - General General: Alert and oriented X 3, No acute distress, Well developed/nourished - Cardiac Cardiac: RRR, No murmur - Respiratory Respiratory: No respiratory distress, Clear bilaterally - Abdomen Abdomen: Normal bowel sounds, Soft, Non tender, Non distended - Rectal Rectal: Deferred, Other (Surgeon will be seeing the patient and patient prefers to only have 1 rectal exam.) Results - Vitals Vitals: Vital Signs - 24 hr 09/10/22 09/10/22 11:14 12:31 Temperature 36.6 C Heart Rate 88 75 Respiratory 20 18 Rate Blood Pressure 146/85 H 119/80 O2 Saturation 93 96 Oxygen O2 Source Room air - Labs Labs: Laboratory Tests 09/10/22 09/10/22 09/10/22 12:10 12:10 12:30 WBC 10.6 RBC 4.67 Hgb 14.2 Hct 43.7 MCV 93.6 MCH 30.4 MCHC 32.5 RDW 14.4 Plt Count 273 MPV 9.0 Neut # (Auto) 7.8 H Lymph # (Auto) 1.3 L [place] # (Auto) 1.2 H Eos # (Auto) 0.2 Baso # (Auto) 0.1 Absolute Nucleated RBC 0.00 Nucleated RBC % 0.0 Sodium 138 Potassium 4.0 Chloride 100 L Carbon Dioxide 27 Anion Gap 11.0 BUN 13 Creatinine 0.8 Estimated GFR (MDRD) 69 L Glucose 96 Calcium 9.1 Total Bilirubin 1.1 H AST 15 ALT 14 Alkaline Phosphatase 57 Total Protein 6.6 L Albumin 3.5 Globulin 3.1 Albumin/Globulin Ratio 1.1 Lipase 40 Urine Color DARK YELLOW Urine Clarity CLEAR Urine pH 6.0 Ur Specific [place] 1.010 Urine Protein NEGATIVE Urine Glucose (UA) NEGATIVE Urine Ketones 15 H Urine Occult Blood MODERATE H Urine Nitrite NEGATIVE Urine Bilirubin NEGATIVE Urine Urobilinogen 0.2 (NORMAL) Ur Leukocyte Esterase SMALL H Urine RBC 0-5 Urine WBC 0-3 Ur Squamous Epith Cells FEW Squamous Urine Bacteria Many H Ur Microscopic Review INDICATED Urine Culture Comments INDICATED PD MEDICAL DECISION MAKING - ED course Complexity details: reviewed results, re-evaluated patient, considered differential, d/w patient ED course: 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 The patient is in stable condition on arrival here, we did obtain labs which are reassuring. She declined a rectal exam by me as she was going to be seen by the surgeon. Dr. Saab kindly saw the patient and stated that there was no postoperative hematoma or signs of infection but he suspects possible angelica irritating the nerve area. He anticipates improvement in a few days. Recommended Toradol and he will follow-up with her in the clinic. She was advised to return if she has signs of infection or other new concerns. Departure - Departure Disposition: 01 Home, Self Care Clinical Impression: Post-op pain Condition: Good Instructions: ANTI-INFLAMMATORY, General Prescriptions: Ketorolac [Toradol] 10 mg PO Q6H PRN #16 tablet PRN Reason: Pain Comments: You presented with pain around your surgical site. The surgeon evaluated you and did not see a hematoma or other signs of acute infection but suspects some nerve pain that you may have for the next few days. Please continue the supportive measures he discussed and you may take the Toradol as prescribed. If you develop new or worsening symptoms, return to the ER.
[2022-09-10 12:26] LABS: BASOPHILS # (AUTO) 0.1 10^3/uL (0.0-0.1); BASOPHILS % (AUTO) 0.7 %; EOSINOPHILS # (AUTO) 0.2 10^3/uL (0.0-0.7); EOSINOPHILS % (AUTO) 2.2 %; HCT - HEMATOCRIT 43.7 % (37.0-47.0); HGB - HEMOGLOBIN 14.2 g/dL (12.0-16.0); LYMPHOCYTES # (AUTO) 1.3 10^3/uL (1.5-3.5); LYMPHOCYTES % (AUTO) 12.6 %; MEAN CORPUSCULAR HEMOGLOBIN 30.4 pg (27.0-31.0); MEAN CORPUSCULAR HGB CONC 32.5 g/dL (32.0-36.0); MEAN CORPUSCULAR VOLUME 93.6 fL (81.0-99.0); MONOCYTES # (AUTO) 1.2 10^3/uL (0.0-1.0); MONOCYTES % (AUTO) 11.4 %; NEUTROPHILS # (AUTO) 7.8 10^3/uL (1.5-6.6); NEUTROPHILS % (AUTO) 72.9 %; PLT - PLATELET COUNT 273 10^3/uL (130-450); RED BLOOD COUNT 4.67 10^6/uL (4.20-5.40); RED CELL DISTRIBUTION WIDTH 14.4 % (12.0-15.0); WHITE BLOOD COUNT 10.6 x10^3/uL (4.8-10.8)
[2022-09-10 12:36] LABS: ALBUMIN 3.5 g/dL (3.2-5.5); ALBUMIN/GLOBULIN RATIO 1.1 (1.0-2.2); BILIRUBIN,TOTAL 1.1 mg/dL (0.2-1.0); CALCIUM 9.1 mg/dL (8.5-10.3); CREATININE 0.8 mg/dL (0.4-1.0); TOTAL PROTEIN 6.6 g/dL (6.7-8.2)
[2022-09-10 12:40] LABS: BILIRUBIN,URINE NEGATIVE (NEGATIVE); GLUCOSE, URINE (UA) NEGATIVE (NEGATIVE); KETONES,URINE (UA) 15 mg/dL (NEGATIVE); LEUKOCYTE ESTERASE, URINE SMALL (NEGATIVE); NITRITE,URINE NEGATIVE (NEGATIVE); OCCULT BLOOD,URINE MODERATE (NEGATIVE); PROTEIN,URINE NEGATIVE (NEGATIVE); UROBILINOGEN,URINE 0.2 (NORMAL) E.U./dL (NORMAL)
[2022-09-10 12:43] LABS: CLARITY,URINE CLEAR (CLEAR)
[2022-09-10 13:03] LABS: BACTERIA,URINE Many /HPF (None Seen); RBC,URINE 0-5 /HPF (0-5); SQUAMOUS EPITHELIAL CELL,UR FEW Squamous (<= Few); WBC,URINE 0-3 /HPF (0-5)
[2022-09-10 13:28] VITALS: BP 127/79
--- NOTE | 2022-09-12 12:13 | ED Physician Documentation ---
ED Addendum - Addendum Addendum: 09/12/22 12:12 Patient's urinalysis came back positive for Klebsiella pneumoniae. We will place on Keflex. Prescription was sent to [facility] pharmacy. Departure - Departure Disposition: 01 Home, Self Care Clinical Impression: Post-op pain UTI (urinary tract infection) Qualifiers: Urinary tract infection type: acute cystitis Hematuria presence: without hematuria Qualified Code(s): N30.00 - Acute cystitis without hematuria Condition: Good Instructions: ANTI-INFLAMMATORY, General Prescriptions: cephALEXin [Keflex] 500 mg PO Q6H #28 cap Ketorolac [Toradol] 10 mg PO Q6H PRN #16 tablet PRN Reason: Pain Comments: You presented with pain around your surgical site. The surgeon evaluated you and did not see a hematoma or other signs of acute infection but suspects some nerve pain that you may have for the next few days. Please continue the supportive measures he discussed and you may take the Toradol as prescribed. If you develop new or worsening symptoms, return to the ER. Discharge Date/Time: 09/10/22 13:32
== END 2022-09-10 13:32 | disposition home or self-care (01) ==
LOC: ED 10:41
DX: G89.18 Other acute postprocedural pain (principal); K62.89 Other specified diseases of anus and rectum; Z87.891 Personal history of nicotine dependence; N39.0 Urinary tract infection, site not specified; B96.1 Klebsiella pneumoniae [K. pneumoniae] as the cause of diseases classified elsewhere
CPT/HCPCS: 36415; 80053; 81001; 83690; 85025; 87077; 87086; 87181; 99281; 99283; A9270; 81003